=== PATIENT | male | born 1960 | race Caucasian/White ===

== ENCOUNTER 2018-01-16 01:07 | Inpatient (IN) | payer OTHER ==
[2018-01-16] VITALS (7 sets, daily range): BP systolic 107–175; BP diastolic 48–92
[~2018-01-16] VITALS: Ht 175.3 cm; Wt 86.3 kg
--- NOTE | ~2018-01-16 | PR ---
[place], [place] PROGRESS NOTE NAME: TANIA WHIPPLE UNIT #: [id number] ROOM: 517 DOCTOR: ZACKARY SILVERIO MD BIRTHDATE: [birth year] DOS: 01/17/2018 SUBJECTIVE: The patient states that he feels slightly better this morning, does not have any new complaints. OBJECTIVE: VITAL SIGNS: Graphic trend shows a pressure of 160/78, pulse of 73, respirations 18, temperature 98.9. LUNGS: Diminished breath sounds. No wheezes, rales, rhonchi heard. HEART: Regular. ABDOMEN: Obese, soft. EXTREMITIES: Without any edema. LABORATORY DATA: Potassium is 3.4, amylase is 154, lipase is 662. White cell count is normal at 10.1. ASSESSMENT AND PLAN: 1. Acute pancreatitis, improvement in the lipase. We will start the patient on a clear liquid diet. 2. Rule out gallstones. So, we will do ultrasound of the gallbladder this morning. 3. Benign hypertension. Blood pressures could be better controlled. He is on clonidine patch right now. We will start him back on some of his home medications. 4. Hypokalemia. Supplementation has been ordered. ZACKARY SILVERIO MD CM:PNTYRA [id number] ZACKARY SILVERIO MD 01/17/18 2149 interface
--- NOTE | ~2018-01-16 | CON ---
[place], [place] REPORT OF CONSULTATION NAME: TANIA WHIPPLE UNIT #: [id number] ROOM: 517 DOCTOR: SOREN CANELASHANITA BIRTHDATE: [birth year] DOS: 01/17/2018 HISTORY OF PRESENT ILLNESS: This gentleman is a 57-year-old who has presented with sudden epigastric abdominal pain, had to be admitted and panel of blood work to be done and it was found that he has pancreatitis. The patient with history of alcoholism heavily in past and he has since quit alcohol 7 years ago, but he continues with the smoking, which could be another offending agent. At the time of admission, white blood cell was 14.9, H and H of 14 and 43, neutrophil was 82. Urinalysis was unremarkable. Comprehensive metabolic panel: BUN and creatinine 8 and 1.3. Calcium within normal limits. Lipase was 4800 plus, alkaline phosphatase 119. CT scan of the abdomen and pelvis was done and there was evidence of pancreatitis, details per CT. CBC: White blood cell dropped to 10, H and H of 12 and 38. The patient's antibiotic. Urine culture, no growth. Ultrasound of the gallbladder: Mild hepatic steatosis, no gallstones, no choledocholithiasis. PAST MEDICAL HISTORY: Otherwise ischemic stroke with a vascular stenosis of the right carotid artery, history of alcoholism in past. ALLERGIES: LOPRESSOR. SOCIAL HISTORY: Active smoker, nonalcohol consumer. PAST SURGICAL HISTORY: Carotid stenting, tracheostomy in past and reversal. MEDICATIONS: List has been reviewed. FAMILY HISTORY: Noncontributory. REVIEW OF SYSTEMS: HEENT: Denies double vision, blurred vision. RESPIRATORY: Admits some shortness of breath. CARDIOVASCULAR: Denies chest pain. DIGESTIVE SYSTEM: Epigastric abdominal pain. PHYSICAL EXAMINATION: VITAL SIGNS: Stable. GENERAL: Short of breath. HEENT: Otherwise within normal limit. NECK: Supple, no thyromegaly, no cervical lymphadenopathy. CHEST: Symmetric anatomy, COPD pattern bilaterally. HEART: Normal sinus rhythm, no gallop, no murmur. ABDOMEN: Obese, soft. No hepato-organomegaly. Bowel sounds present. Nonspecific epigastric pain. No rebound tenderness. EXTREMITIES: No cyanosis, no pedal edema. NEUROLOGIC: Alert, oriented to time, place, person. IMPRESSION: Pancreatitis, etiology so far has to be believed to be not only to chronic alcoholism that he has had from past; however, no other acute on chronic, perhaps nicotine consumer. He has stopped alcohol 7 years ago. Other [place], [place] REPORT OF CONSULTATION NAME: TANIA WHIPPLE UNIT #: [id number] ROOM: [facility] DOCTOR: SOREN CANELA,SHANITA BIRTHDATE: [birth year] adjunctive diagnosis, carotid artery disease, cerebrovascular accident. PLAN AND DISCUSSION: We are going to continuing with the same pattern of therapy and he has already been given solid food while his lipase has dropped to mid 600. We are going to repeat his lipase tomorrow morning and if remains low, we will continue with his feeding. I thank you very much indeed for your very kind referral. SHANITA DOTY MD CM:CONSTR:REPORT OF CONSULTATION 13 02/04/18 0938 interface
--- NOTE | ~2018-01-16 | WRIGHTHP ---
[place], [place] PATIENT HISTORY AND PHYSICAL EXAM NAME: TANIA WHIPPLE [facility] #: [id number] UNIT #: [id number] ROOM: 517 DOCTOR: ZACKARY SILVERIO MD BIRTHDATE: [birth year] DOS: 01/16/2018 HISTORY OF PRESENT ILLNESS: The patient is 57 years old, not known to me. The patient comes in with complaints of abdominal pain for about a week or more duration. It continued to get worse and yesterday he had some nausea and emesis, so finally decided to come into the Emergency Room. He denies having any chest pains or palpitations, does not have any fever or chills, does not have any of headaches or dizziness. The patient does not drink any alcohol either. PAST MEDICAL HISTORY: Significant for: 1. Hypertension. 2. Mixed hyperlipidemia. 3. Right carotid endarterectomy. 4. History of acute ischemic stroke. 5. History of respiratory failure and tracheostomy in 2016 following a CVA. Moderate cigarette smoker. MEDICATIONS: That he is currently on are Lipitor 80 daily, iron 150 daily, aspirin 81 daily, isosorbide 40 daily, loratadine 10 daily, mag oxide 400 daily, omeprazole 20 daily, propranolol 60 daily. SOCIAL HISTORY: Smokes about half a pack of cigarettes. Denies using any alcohol. Lives at home. PHYSICAL EXAMINATION: GENERAL: He is awake and alert and oriented, in quite a lot of discomfort. VITAL SIGNS: Pressure is 175/78, pulse of 60, respirations 16, temperature 97.5. LUNGS: Diminished breath sounds, clear. HEART: Regular. ABDOMEN: Obese, some diffuse tenderness present, but the tenderness worse in the left upper quadrant. EXTREMITIES: Without edema. LABORATORY DATA: White cell count is 14.9, hemoglobin 14.6, hematocrit 43.8. Urinalysis; trace blood, 1+ protein. Comprehensive glucose 130, BUN 8, creatinine 1.33. Electrolytes were normal. Calcium is 9.4. Lipase is 4861. No amylase was done. Liver enzymes were normal. CT of the abdomen and pelvis shows basilar atelectasis, moderate stranding mesenteric edema around the pancreas suggestive of acute pancreatitis. No gallstones were detected. ASSESSMENT AND PLAN: 1. Acute pancreatitis. We will keep the patient n.p.o., IV fluids, IV Dilaudid for pain control and IV Rocephin. We will check amylase, lipase and calcium and hemoglobin in the morning. Also do an ultrasound of the gallbladder, rule out stones. 2. History of cerebrovascular accident. Currently, the patient is stable. Advised him avoiding cigarettes. 3. Benign hypertension. Pressures were extremely high since he is n.p.o. I [place], [place] PATIENT HISTORY AND PHYSICAL EXAM NAME: TANIA WHIPPLE UNIT #: [id number] ROOM: [facility] DOCTOR: ZACKARY SILVERIO MD BIRTHDATE: [birth year] have placed him on a Catapres patch. ZACKARY SILVERIO MD CM:HISPHYS:PATIENT HISTORY AND PHYSICAL EXAMINATION 0900 [id number] ZACKARY SILVERIO MD 01/16/18 1309 interface
[~2018-01-16 01:07] MED LIST: ASPIRIN81 M1 PO; ATARAX25 MG PO; CLARITIN10 MG PO; Ferrex 150150 MG PO; ISORDIL40 MG PO; K-TAB10 MEQ PO; KEFLEX500 MG PO; LIDODERM 5% PATC1 EA T; LIPITOR80 MG PO; LOPRESSOR25 MG PO; MACROBID100 M1 PO; Magnesium Oxid400 MG PO; NKHM; PLAVIX75 M1 PO; PREDNISONE20 MG PO; PROPRANOLOL HYD60 M1 PO; PROTONIX40 MG PO; SEROQUEL50 MG PO; URECHOLINE25 MG PO
[2018-01-16] MEDS ORDERED: PRILOSEC20 M1 PO (01:17)
[2018-01-16 01:32] LABS: BASO % 0.2 % (0.0-1.0); EOS % 0.3 % (1.0-4.0); HEMATOCRIT 43.8 % (42.0-52.0); HEMOGLOBIN 14.6 g/dl (14.0-18.0); LYMPH # 1.6 10*3/uL (1.3-4.4); LYMPH % 10.6 % (27.0-41.0); MEAN CELL VOLUME 94.8 fl (80.0-94.0); MEAN CORPUSCULAR HGB 31.6 pg (27.0-31.0); MEAN CORPUSCULAR HGB CONC 33.3 g/dl (33.0-37.0); MONO # 0.8 10*3/uL (0.1-1.0); MONO % 5.7 % (3.0-9.0); NEUT # 12.3 10*3/uL (2.3-7.9); NEUT % 82.9 % (47.0-73.0); PLATELET COUNT AUTOMATED 309 10*3/uL (130-400); RED BLOOD COUNT 4.62 10*6/uL (4.50-5.90); RED CELL DISTRI WIDTH 12.1 % (0-14.5); WHITE BLOOD COUNT 14.9 10*3/uL (4.8-10.8)
[2018-01-16 01:40] LABS: BILIRUBIN NEGATIVE (NEGATIVE); BLOOD TRACE-INTACT (NEGATIVE); CLARITY CLEAR (CLEAR); COLOR YELLOW (YELLOW); GLUCOSE NEGATIVE (NEGATIVE); KETONE NEGATIVE (NEGATIVE); LEUKO ESTERASE TRACE (NEGATIVE); NITRITE NEGATIVE (NEGATIVE); SPECIFIC GRAVITY 1.015 (1.005-1.030); UROBILINOGEN 0.2 E.U./dl (0.2-1.0)
[2018-01-16 01:46] LABS: BACTERIA TRACE
[2018-01-16 01:47] LABS: ALBUMIN 3.9 gm/dl (3.1-4.5); ALKALINE PHOSPHATASE 119 U/L (45-117); BUN 8 mg/dl (7-24); CHLORIDE 103 mmol/L (98-107); CREATININE 1.33 mg/dL (0.70-1.30); LIPASE 4861 U/L (73-393); POTASSIUM 3.8 mmol/L (3.5-5.1); SGOT/AST 23 IU/L (3-35); SGPT/ALT 25 U/L (12-78); SODIUM 142 mmol/L (136-145); TOTAL PROTEIN 7.8 gm/dL (6.4-8.2)
[2018-01-16] MEDS ORDERED: FERREX 150150 MG PO (18:40)
[2018-01-17] VITALS: BP 160/78
[2018-01-17 07:00] LABS: BASO # 0.1 10*3/uL (0.0-0.1); BASO % 0.5 % (0.0-1.0); EOS # 0.1 10*3/uL (0.0-0.4); EOS % 0.8 % (1.0-4.0); HEMATOCRIT 38.7 % (42.0-52.0); HEMOGLOBIN 12.6 g/dl (14.0-18.0); LYMPH # 1.4 10*3/uL (1.3-4.4); LYMPH % 13.9 % (27.0-41.0); MEAN CELL VOLUME 95.6 fl (80.0-94.0); MEAN CORPUSCULAR HGB 31.1 pg (27.0-31.0); MEAN CORPUSCULAR HGB CONC 32.6 g/dl (33.0-37.0); MEAN PLATELET VOLUME 10.5 fl (9.6-12.3); MONO # 0.7 10*3/uL (0.1-1.0); MONO % 7.2 % (3.0-9.0); NEUT # 7.8 10*3/uL (2.3-7.9); NEUT % 77.3 % (47.0-73.0); PLATELET COUNT AUTOMATED 233 10*3/uL (130-400); RED BLOOD COUNT 4.05 10*6/uL (4.50-5.90); RED CELL DISTRI WIDTH 12.1 % (0-14.5); WHITE BLOOD COUNT 10.1 10*3/uL (4.8-10.8)
[2018-01-17 07:05] LABS: BUN 9 mg/dl (7-24); CHLORIDE 106 mmol/L (98-107); CREATININE 1.04 mg/dL (0.70-1.30); LIPASE 662 U/L (73-393); POTASSIUM 3.4 mmol/L (3.5-5.1); SODIUM 140 mmol/L (136-145)
[2018-01-17 08:00] VITALS: BP 137/81
[2018-01-17 12:00] VITALS: BP 131/67
[2018-01-17 16:00] VITALS: BP 134/84
[2018-01-17 20:00] VITALS: BP 152/66
[2018-01-18] VITALS: BP 147/77
== END 2018-01-18 01:35 | disposition left against medical advice (07) | DRG 438 ==
LOC: ED 01:07 → 5E 04:14 → EDHOLD 04:14 → 5E 04:31
PROVIDERS: Internal Medicine; Student in an Organized Health Care Education/Training Program
DX: K85.90 Acute pancreatitis without necrosis or infection, unspecified (principal); N17.0 Acute kidney failure with tubular necrosis; I10 Essential (primary) hypertension; E78.2 Mixed hyperlipidemia; E87.6 Hypokalemia; F17.210 Nicotine dependence, cigarettes, uncomplicated; I25.10 Atherosclerotic heart disease of native coronary artery without angina pectoris; K21.9 Gastro-esophageal reflux disease without esophagitis; F32.9 Major depressive disorder, single episode, unspecified; M10.9 Gout, unspecified; Z86.73 Personal history of transient ischemic attack (TIA), and cerebral infarction without residual deficits; Z88.8 Allergy status to other drugs, medicaments and biological substances; Z79.82 Long term (current) use of aspirin; Z79.899 Other long term (current) drug therapy; N18.3 Chronic kidney disease, stage 3 (moderate)

== ENCOUNTER 2019-07-01 17:25 | Emergency (ER) | payer OTHER ==
[~2019-07-01] VITALS: Ht 167.6 cm; Wt 88.9 kg
[~2019-07-01 17:25] MED LIST changes: +FERREX 150150 MG PO; +PRILOSEC20 M1 PO
[2019-07-01 18:33] LABS: BASO # 0.1 10*3/uL (0.0-0.1); BASO % 0.6 % (0.0-1.0); EOS # 0.1 10*3/uL (0.0-0.4); EOS % 0.9 % (1.0-4.0); HEMATOCRIT 38.7 % (42.0-52.0); HEMOGLOBIN 13.4 g/dl (14.0-18.0); LYMPH # 0.4 10*3/uL (1.3-4.4); LYMPH % 4.2 % (27.0-41.0); MEAN CELL VOLUME 92.6 fl (80.0-94.0); MEAN CORPUSCULAR HGB 32.1 pg (27.0-31.0); MEAN CORPUSCULAR HGB CONC 34.6 g/dl (33.0-37.0); MEAN PLATELET VOLUME 10.5 fl (9.6-12.3); MONO # 0.5 10*3/uL (0.1-1.0); MONO % 6.1 % (3.0-9.0); NEUT # 7.6 10*3/uL (2.3-7.9); NEUT % 87.9 % (47.0-73.0); NUCLEATED RED BLOOD CELL 0.2 % (0.0-0.0); PLATELET COUNT AUTOMATED 255 10*3/uL (130-400); RED BLOOD COUNT 4.18 10*6/uL (4.50-5.90); RED CELL DISTRI WIDTH 13.2 % (0-14.5); WHITE BLOOD COUNT 8.6 10*3/uL (4.8-10.8)
[2019-07-01 18:49] LABS: ALBUMIN 3.4 gm/dl (3.1-4.5); ALKALINE PHOSPHATASE 126 U/L (45-117); BUN 8 mg/dl (7-24); CHLORIDE 103 mmol/L (98-107); CREATININE 1.43 mg/dL (0.70-1.30); LIPASE 128 U/L (73-393); POTASSIUM 3.4 mmol/L (3.5-5.1); SGOT/AST 27 IU/L (3-35); SGPT/ALT 30 U/L (12-78); SODIUM 136 mmol/L (136-145); TOTAL PROTEIN 6.8 gm/dL (6.4-8.2)
[2019-07-01 18:50] LABS: TROPONIN I < 0.015 ng/ml (<0.045)
[2019-07-01] MEDS ORDERED: TESSALON PERLE100 M1 PO (19:43)
[2019-07-01] MEDS ORDERED: PROAIR HFA8.5 GM INH (19:43)
== END 2019-07-01 19:56 | disposition home or self-care (01) ==
LOC: ED 17:25
PROVIDERS: Physician Assistant
DX: B34.9 Viral infection, unspecified (principal); E86.0 Dehydration; J44.9 Chronic obstructive pulmonary disease, unspecified; F17.200 Nicotine dependence, unspecified, uncomplicated; Z88.8 Allergy status to other drugs, medicaments and biological substances; Z79.899 Other long term (current) drug therapy; Z79.82 Long term (current) use of aspirin

== ENCOUNTER 2022-02-26 06:33 | Emergency (ER) | payer OTHER ==
[~2022-02-26] VITALS: Ht 177.8 cm; Wt 68.0 kg
[~2022-02-26 06:33] MED LIST changes: +PROAIR HFA8.5 GM INH; +TESSALON PERLE100 M1 PO
[2022-02-26 07:02] LABS: BASO # 0.1 10*3/uL (0.0-0.1); BASO % 1.3 % (0.0-1.0); EOS % 14.1 % (1.0-4.0); HEMATOCRIT 38.7 % (42.0-52.0); LYMPH # 1.6 10*3/uL (1.3-4.4); LYMPH % 23.8 % (27.0-41.0); MEAN CELL VOLUME 93.7 fl (80.0-94.0); MEAN CORPUSCULAR HGB 30.8 pg (27.0-31.0); MEAN CORPUSCULAR HGB CONC 32.8 g/dl (33.0-37.0); MEAN PLATELET VOLUME 9.2 fl (9.6-12.3); MONO # 0.5 10*3/uL (0.1-1.0); NEUT # 3.5 10*3/uL (2.3-7.9); NEUT % 52.7 % (47.0-73.0); PLATELET COUNT AUTOMATED 416 10*3/uL (130-400); RED BLOOD COUNT 4.13 10*6/uL (4.50-5.90); RED CELL DISTRI WIDTH 13.9 % (0-14.5); WHITE BLOOD COUNT 6.7 10*3/uL (4.8-10.8)
[2022-02-26 07:22] LABS: ALKALINE PHOSPHATASE 117 U/L (45-117); BUN 14 mg/dl (7-24); CHLORIDE 108 mmol/L (98-107); CREATININE 0.98 mg/dL (0.70-1.30); POTASSIUM 3.8 mmol/L (3.5-5.1); SGOT/AST 18 IU/L (3-35); SGPT/ALT 15 U/L (12-78); SODIUM 142 mmol/L (136-145); TOTAL PROTEIN 7.3 gm/dL (6.4-8.2)
[2022-02-26] MEDS ORDERED: VIBRA-TAB100 MG PO (08:08)
== END 2022-02-26 08:45 | disposition home or self-care (01) ==
LOC: ED 06:33
PROVIDERS: Internal Medicine
DX: L03.115 Cellulitis of right lower limb (principal); F17.200 Nicotine dependence, unspecified, uncomplicated; Z88.8 Allergy status to other drugs, medicaments and biological substances; Z79.899 Other long term (current) drug therapy; Z79.82 Long term (current) use of aspirin; Z86.73 Personal history of transient ischemic attack (TIA), and cerebral infarction without residual deficits